=== PATIENT | male | born 1975 | race Caucasian/White ===

== ENCOUNTER 2024-05-04 14:17 | Outpatient (AMB) | payer OTHER, SELFPAY ==
--- NOTE | 2024-05-04 14:24 | MHC.PC.OV ---
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 Is taking medication for blood pressure, unable to understand interpretation on what the name of the medication is. 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 He moved here from [facility] and this is the first time he has been seen since being in the . He states he has a hx of heart problems and kidney disease . He has htn and kidney cysts. [facility] phone pecan sheller used today. CV: He was on a 10 mg blood pressure drug he does not know the name of. He does not think he has ever had cholesterol issues. He has never had a heart attack or stroke to his knowledge. He denies ever having a stress test. Uro: He states that the cysts are small and he is not sure if it is ever caused any kidney damage. Denies any urinary symptoms. He denies any significant family history. No known heart disease or malignancies. He has never had a colonoscopy. [facility] Family History (Updated 05/04/24 @ 14:37 by Diann Jauregui CMA) Mother Diabetes Social History Housing: House Patient Tobacco Use Status: Former Tobacco user Cigarette Packs Per Day: 1 Years Smoked: 1.5 e-Cigarette/Vaping Use: Never Used Second Hand Smoke Exposure: No service: Yes Current occupational status: employed and unemployed Cognitive needs: No Hearing needs: Yes (difficutly hearing) Vision needs: No Questionnaire PHQ-9 Over the last 2 weeks, how often have you been bothered by any of the following problems? 1. Little interest or pleasure in doing things: not at all 3. Trouble falling or staying asleep, or sleeping too much: not at all 4. Feeling tired or having little energy: nearly every day 5. Poor appetite or overeating: not at all 6. Feeling bad about yourself - or that you are a failure or have let yourself or your family down: not at all 7. Trouble concentrating on things, such as reading the newspaper or watching television: not at all 8. Moving or speaking so slowly that other people could have noticed. Or the opposite - being so fidgety or restless that you have been moving around a lot more than usual: not at all 9. Thoughts that you would be better off or of hurting yourself in some way: not at all Depression Screening Interpretation: Negative Depression Screening Done: Yes 12951 - PHQ-9 Billing: Yes Source: Developed by Drs. Len Aguilera, Gina Perera, Gatito Guerrero and colleagues, with an educational fatou from [employer]. Thrive Questionnaire Date Thrive assessed: 05/02/24 I am a: Patient What is your living situation today?: I have a steady place to live Within the past 12 months, did the food you bought not last and you didn't have the money to get more?: Never true Within the past 12 months, did you worry whether your food would run out before you got money to buy more?: Never true Do you have trouble paying for medicines?: No Do you have trouble getting transportation to medical appointments?: No Do you have trouble paying your heating and electricity bill?: No Do you have trouble taking care of your child, family member or friend?: No Do you have trouble with day-to-day activities such as bathing, preparing meals, shopping, managing finances, etc.?: No Are you currently unemployed and looking for a job?: Yes Are you interested in more education?: Yes Please select the resources that you would like help with: None Currently or been in a relationship where the following occur: No concerns reported THRIVE Score: 0 AUDIT C Alcohol Use Questionnaire (AUDIT-C) 1. How often do you have a drink containing alcohol?: 2-4 times a month 2. How many drinks containing alcohol do you have on a typical day when you are drinking?: 1 or 2 3. How often do you have six or more drinks on one occasion?: Less than monthly Total Score: 3 ARTI-7 AMB Questionnaire ARTI-7 Feeling nervous, anxious, or on edge: 0 = Not at all Not being able to stop or control worryin = Not at all Worrying too much about different things: 0 = Not at all Trouble relaxin = Not at all Being so restless that it is hard to sit still: 0 = Not at all Becoming easily annoyed or irritable: 0 = Not at all Feeling afraid as if something awful might happen: 0 = Not at all Total ARTI-7 score (0-4 normal; 5-9 mild; 10-14 moderate; 15-21 severe): 0 Source: Developed by Drs. Len Aguilera, Gina Perera, Gatito Guerrero and colleagues, with an educational fatou from [employer]. ARTI-7 Assessment Billing ARTI-7 Assessment Tool: ARTI-7 Assessment 01573 Physical exam (Primary Care) Depression Screening Interpretation: Negative Thrive Assessment: Date of Thrive Assessment Date Thrive assessed 05/02/24 05/02/24 08:26 Currently or been in a relationship where the following occur: No concerns reported Const Orientation/consciousness: patient oriented x3 HENMT Ears: hearing grossly normal bilaterally Neck Thyroid: Thyroid normal Lymphatic: no lymphadenopathy noted Resp Auscultation: clear to auscultation bilaterally Cardio Rate: regular rate Rhythm: regular rhythm Heart sounds: S1 normal heart sound present and S2 normal heart sound present GI Inspection: Yes normal to inspection Palpation (GI): Soft to palpation and Other GI palpation findings present (nontender, no cva tenderness) Auscultation: normoactive bowel sounds Rectal Exam - Male: Yes deferred Skin General skin exam: no rashes or lesions noted Neuro General: patient oriented x3, gait normal and no focal motor deficits Office Procedures EKG Details: EKG today in office is normal sinus rhythm. EKG interpreted by myself and Dr. Cohen [id number], Complete Coding Level of Care Code New Pt Level 4 (60302) Complex EM visit Add On G2211 Diagnoses Primary hypertension I10 Hypertension type: primary hypertension Renal cyst N28.1 CPT Codes EKG - CPT: 08966-[id number], Complete ([id number]) Additional Codes PHQ-9 - 89507 - PHQ-9 Billing: Yes ([id number]) ARTI-7 Assessment Billing - ARTI-7 Assessment Tool: ARTI-7 Assessment 82334 ([id number]) Assessment & Plan Assessment & Plan (1) Hypertension: Code(s): I10 - Essential (primary) hypertension Category: Medical Qualifiers: Hypertension type: primary hypertension Qualified Code(s): I10 - Essential (primary) hypertension Plan: We will start lisinopril 10 mg. We discussed risks and benefits and adverse effects of this medication. Labs ordered today. We will follow up pending test results. EKG today in office (2) Renal cyst: Code(s): N28.1 - Cyst of kidney, acquired Category: Medical Plan: Renal ultrasound ordered. Labs ordered. Plan Colonoscopy ordered Labs ordered including CBC, CMP, lipid, TSH, UA and PSA. Orders: Orders Complete Blood Count Auto Diff Today I10 - Essential (primary) hypertension, N28.1 - Cyst of kidney, acquired AMB EKG-In Office Today I10 - Essential (primary) hypertension, N28.1 - Cyst of kidney, acquired, Z13.6 - Encounter for screening for cardiovascular disorders US renal BI Today I10 - Essential (primary) hypertension, N28.1 - Cyst of kidney, acquired, Z13.6 - Encounter for screening for cardiovascular disorders Comprehensive Homeland. Panel Fast Today I10 - Essential (primary) hypertension, N28.1 - Cyst of kidney, acquired Lipid Panel Today I10 - Essential (primary) hypertension, N28.1 - Cyst of kidney, acquired TSH reflex Free T4 Today I10 - Essential (primary) hypertension, N28.1 - Cyst of kidney, acquired UA CC w/rflx Micro + Cult Today I10 - Essential (primary) hypertension, N28.1 - Cyst of kidney, acquired, Z13.220 - Encounter for screening for lipoid disorders Prostate Specific Antigen Scr Today Z01.89 - Encounter for other specified special examinations Referrals Open Access Screening Colonoscopy Referral Z12.11 - Encounter for screening for malignant neoplasm of colon Medications: New lisinopril 10 mg PO DAILY 90 tabs 1RF
[2024-05-04 14:42] VITALS: BP 126/88; PULSE 85; O2SAT 97; BMI 29.6
== END 2024-05-04 15:14 | disposition home or self-care (01) ==
PROVIDERS: Visit Provider Physician Assistant
DX: I10 Essential (primary) hypertension (principal); N28.1 Cyst of kidney, acquired

== ENCOUNTER → 2024-05-04 14:17 | Outpatient (BNVA) | payer OTHER, SELFPAY | PROVIDERS: Visit Provider Physician Assistant | DX: I10 Essential (primary) hypertension (principal); N28.1 Cyst of kidney, acquired | CPT/HCPCS: 93005; 96127; 99202 ==

== ENCOUNTER 2024-05-09 10:08 | Outpatient (REF) | payer OTHER, SELFPAY ==
[2024-05-09 14:24] LABS: MANUAL DIFF FLAG NO
[2024-05-09 14:28] LABS: Appearance Urine Clear; Color Urine Yellow; Glucose Urine UA Negative (Negative); Leukocyte Esterase Urine Negative (Negative); Nitrite Urine Negative (Negative); PH 5.5 (5.0-9.0); Urine Blood Negative (Negative); Urine Ketones Negative (Negative); Urine Protein Negative (Neg-Trace)
[2024-05-09 14:40] LABS: Basophils Absolute Auto 0.1 X10*3/uL (0.0-0.2); Eosinophils Absolute Auto 0.1 X10*3/uL (0.0-0.4); Eosinophils Percent Auto 1.7 % (0-4); Hematocrit 44.5 % (42.0-52.0); Hemoglobin 14.8 g/dl (14.0-18.0); Imm Gran Abs Auto 0.02 X10*3/uL (0.00-0.03); Imm Gran Pct Auto 0.3 % (0.0-0.4); Lymphocytes Absolute Auto 2.6 X10*3/uL (1.2-4.9); Lymphocytes Percent Auto 43.9 % (20-40); Mean Corpuscular HGB Conc 33.3 g/dl (31.0-36.0); Mean Corpuscular Hemoglobin 28.6 pg (27.0-33.0); Mean Corpuscular Volume 86.1 fL (80.0-98.0); Mean Platelet Volume 10.2 fL (9.4-12.4); Monocytes Absolute Auto 0.5 X10*3/uL (0.1-1.2); Monocytes Percent Auto 8.2 % (2-11); Neutrophils Absolute Auto 2.7 x10*3/uL (2.0-8.3); Neutrophils Percent Auto 44.9 % (45-73); Platelet Count 259 X10*3/uL (160-400); Red Blood Count 5.17 X10*6/uL (4.60-5.80); Red Cell Distribution Width 13.6 % (11.0-16.0)
[2024-05-09 15:35] LABS: Prostate Specific Antigen Scr 0.31 ng/mL (<0.05-4.0)
[2024-05-09 15:59] LABS: Alanine Aminotransferase 54 U/L (0-40); Albumin Level 4.4 g/dL (3.5-5.0); Anion Gap 13 (12-20); Aspartate Amino Transferase 31 U/L (5-37); Bilirubin Total 0.5 mg/dL (0.0-1.0); Blood Urea Nitrogen 18 mg/dL (9-16); Calcium 9.7 mg/dL (8.4-10.2); Carbon Dioxide 25 mmol/L (22-29); Chloride 105 mmol/L (96-108); Cholesterol 228 mg/dL (<200); Estimated Glomerular Filt Rate > 60; Glucose Fasting 89 mg/dL (60-99); HDL Cholesterol 42 mg/dL (>40); LDL Cholesterol Calculated 145 mg/dL (<100); Sodium 139 mmol/L (135-145); Total Protein 7.3 g/dL (6.5-8.0); Triglycerides 206 mg/dL (<150)
[2024-05-09 16:26] LABS: TSH reflex Free T4 1.28 uIU/mL (0.32-4.0)
[2024-05-09 17:27] LABS: Alkaline Phosphatase 57 U/L (39-117)
== END 2024-05-09 10:09 | disposition home or self-care (01) ==
LOC: HO.WFDLDS 10:08
PROVIDERS: Visit Provider Physician Assistant
DX: I10 Essential (primary) hypertension (principal); N28.1 Cyst of kidney, acquired; Z13.220 Encounter for screening for lipoid disorders; Z01.89 Encounter for other specified special examinations
CPT/HCPCS: 36415; 80053; 80061; 81003; 84153; 84443; 85025

== ENCOUNTER 2024-05-12 13:52 | Outpatient (REF) | payer OTHER, SELFPAY | END 2024-05-12 13:53 | disposition home or self-care (01) | LOC: HO.US 13:52 | PROVIDERS: PCP Physician Assistant; Visit Provider Physician Assistant | DX: N28.1 Cyst of kidney, acquired (principal); I10 Essential (primary) hypertension | CPT/HCPCS: 76775 ==

== ENCOUNTER 2024-05-26 10:15 | Outpatient (REF) | payer OTHER, SELFPAY ==
--- NOTE | ~2024-05-26 | US_ITS ---
EXAMINATION: US ABDOMEN COMPLETE CLINICAL INFORMATION: Abnormal results of liver function studies. COMPARISON: Renal ultrasound 05/12/2024. TECHNIQUE: Real-time imaging of the abdominal viscera. FINDINGS: PANCREAS: The visualized portion of the pancreas head and body are normal, portion of the pancreatic body and tail, not visualized are obscured by bowel gas. ABDOMINAL AORTA: The proximal, mid, and distal segments are normal in caliber. INFERIOR VENA CAVA: Visualized portions are normal. LIVER: The liver is normal in size. The liver contour is normal. Increased echogenicity of the liver parenchyma, this can be seen in the setting of hepatic steatosis or liver parenchymal disease. No focal hepatic lesion. There is no intrahepatic biliary duct dilatation seen. GALLBLADDER: There is a gallstone 4 mm. The gallbladder is physiologically distended without evidence of sludge, wall thickening or pericholecystic fluid. No evidence of cholecystitis. COMMON BILE DUCT: Normal in caliber measuring 0.4 cm in diameter. RIGHT KIDNEY: No hydronephrosis. No renal calculi or focal parenchymal lesions. The kidney measures 11.0 cm in maximum dimension. LEFT KIDNEY: No hydronephrosis or renal calculi. The kidney measures 11.8 cm in maximum dimension. Cyst protruding from the left kidney 1.5 cm. These are commonly benign, no follow-up imaging is indicated. SPLEEN: The spleen measures 9.6 cm in maximum dimension. FREE FLUID: None. US/US abdomen complete IMPRESSION: 1. Increased echogenicity of the liver parenchyma, this can be seen in the setting of hepatic steatosis or liver parenchymal disease. 2. Cholelithiasis without ultrasound evidence of acute cholecystitis. 3. Left renal cyst 1.5 cm. Electronically signed by: Humberto Flores MD 06/11/2024 01:11 PM [facility]
== END 2024-05-26 10:16 | disposition home or self-care (01) ==
LOC: HO.US 10:15
PROVIDERS: PCP Physician Assistant; Visit Provider Physician Assistant
DX: R94.5 Abnormal results of liver function studies (principal)
CPT/HCPCS: 76700

== ENCOUNTER 2024-06-01 09:21 | Outpatient (AMB) | payer OTHER, SELFPAY ==
--- NOTE | 2024-06-01 09:31 | MHC.PC.OV ---
Vital Signs 06/01/24 09:35 06/01/24 09:42 Height 5 ft 10.35 in Weight 212 lb BMI 30.1 BP 148/94 H 134/90 H Blood Pressure Location Rt brachial Rt brachial Position Sitting Sitting Pulse 94 Pulse Source Pulse Oximeter Pulse Oximetry (%) 95 Oxygen Delivery Method Room Air Intake Visit Reasons: htn (malawian interp needed) Intake Note: Follow up htn. Was at ER 06/08/24 Clerical Coordinator Required: Yes Clerical Coordinator Language: Uzbek Clerical Coordinator Name: Lenard [id number] Allergies No Known Allergies Allergy (Verified 06/01/24 09:33) Medication List - Last Reconciled 06/01/24 by Dulce Mcdonough PA-C Tobacco use date assessed: 05/04/24 Dental Screening Dental Screen Date: 05/04/24 HPI htn (malawian interp needed) HPI Details Patient is a 48-year-old male who presents today for a follow up. He moved here from [facility] and this is the first time he has been seen since being in the . He has htn, dyslipidemia and kidney cysts. 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 [place] [facility] [place] after he fell at home and landed on his chest on 05/25/24. He states he fell while working [employer] [place] the ice. He landed on a set of stairs CV: He was started on lisinopril 10 mg. His bp today is 134/90. This is similar to his log he brought in. Uro: He states that the cysts are small and he is not sure if it is ever caused any kidney damage. Denies any urinary symptoms. U/s was done but results are not back yet. He denies any significant family history. No known heart disease or malignancies. He has never had a colonoscopy. He was referred at our last visit. [facility] Family History (Updated 05/04/24 @ 14:38 by Diann Jauregui CMA) Mother Diabetes Social History Housing: House Patient Tobacco Use Status: Former Tobacco user Cigarette Packs Per Day: 1 Years Smoked: 1.5 e-Cigarette/Vaping Use: Never Used Second Hand Smoke Exposure: No service: Yes Current occupational status: employed and unemployed Cognitive needs: No Hearing needs: Yes (difficutly hearing) Vision needs: No Questionnaire PHQ-9 Over the last 2 weeks, how often have you been bothered by any of the following problems? 2. Feeling down, depressed, or hopeless: not at all Source: Developed by Drs. Len Aguilera, Gina Perera, Gatito Guerrero and colleagues, with an educational fatou from [employer]. Thrive Questionnaire Date Thrive assessed: 05/02/24 I am a: Patient What is your living situation today?: I have a steady place to live Within the past 12 months, did the food you bought not last and you didn't have the money to get more?: Never true Within the past 12 months, did you worry whether your food would run out before you got money to buy more?: Never true Do you have trouble paying for medicines?: No Do you have trouble getting transportation to medical appointments?: No Do you have trouble paying your heating and electricity bill?: No Do you have trouble taking care of your child, family member or friend?: No Do you have trouble with day-to-day activities such as bathing, preparing meals, shopping, managing finances, etc.?: No Are you currently unemployed and looking for a job?: Yes Are you interested in more education?: Yes Please select the resources that you would like help with: None Currently or been in a relationship where the following occur: No concerns reported THRIVE Score: 0 Physical exam (Primary Care) Vital Signs: Last Vital Signs Pulse 94 06/01/24 09:35 BP 134/90 H 06/01/24 09:42 Pulse Ox 95 06/01/24 09:35 Oxygen Delivery Method Room Air 06/01/24 09:35 BMI result Body Mass Index 30.1 Tobacco/Smoking Status: Tobacco use Status Tobacco use date assessed 05/04/24 06/01/24 09:34 Patient Tobacco Use Status Former Tobacco user 06/01/24 09:34 e-Cigarette/Vaping Use Never Used 06/01/24 09:34 Thrive Assessment: Date of Thrive Assessment Date Thrive assessed 05/02/24 06/01/24 09:34 Currently or been in a relationship where the following occur: No concerns reported Const Orientation/consciousness: patient oriented x3 HENMT Ears: hearing grossly normal bilaterally Neck Thyroid: Thyroid normal Lymphatic: no lymphadenopathy noted Resp Auscultation: clear to auscultation bilaterally Cardio Rate: regular rate Rhythm: regular rhythm Heart sounds: S1 normal heart sound present and S2 normal heart sound present GI Inspection: Yes normal to inspection Palpation (GI): Soft to palpation and Other GI palpation findings present (nontender, no cva tenderness) Auscultation: normoactive bowel sounds Rectal Exam - Male: Yes deferred Skin General skin exam: no rashes or lesions noted Neuro General: patient oriented x3, gait normal and no focal motor deficits Results Reviewed Results Reviewed: Laboratory Tests 05/09/24 10:10 WBC 6.0 RBC 5.17 Hgb 14.8 Hct 44.5 Plt Count 259 Sodium 139 Potassium 4.0 Chloride 105 Estimated GFR > 60 Fasting Glucose 89 Triglycerides 206 H Cholesterol 228 H LDL Cholesterol, Calc 145 H HDL Cholesterol 42 PSA Screen 0.31 TSH 1.28 Coding Level of Care Code Est Pt Level 4 (84736) Complex EM visit Add On G2211 Diagnoses Primary hypertension I10 Hypertension type: primary hypertension Elevated LFTs R79.89 Dyslipidemia E78.5 Assessment & Plan Assessment & Plan (1) Hypertension: Code(s): I10 - Essential (primary) hypertension Category: Medical Qualifiers: Hypertension type: primary hypertension Qualified Code(s): I10 - Essential (primary) hypertension Plan: I will increase his lisinopril to 20 mg. Appears to be tolerating this well. (2) Elevated LFTs: Code(s): R79.89 - Other specified abnormal findings of blood chemistry Category: Medical Plan: Repeat labs have been ordered. He is going to complete these today. We will follow up pending test results. He did do an abdominal ultrasound but the results are not back yet. (3) Dyslipidemia: Code(s): E78.5 - Hyperlipidemia, unspecified Category: Medical Plan: He would like to start a low-fat diet and does not want to start medication. Orders: Orders Lipid Panel 3 Months E78.5 - Hyperlipidemia, unspecified Medications: New lisinopril 20 mg PO DAILY 90 tabs 1RF
[2024-06-01 09:35] VITALS: BP 148/94; PULSE 94; O2SAT 95; BMI 30.1
[2024-06-01 09:42] VITALS: BP 134/90
== END 2024-06-01 10:26 | disposition home or self-care (01) ==
PROVIDERS: PCP Physician Assistant; Visit Provider Physician Assistant
DX: I10 Essential (primary) hypertension (principal); R79.89 Other specified abnormal findings of blood chemistry; E78.5 Hyperlipidemia, unspecified

== ENCOUNTER → 2024-06-01 09:21 | Outpatient (BNVA) | payer OTHER, SELFPAY | PROVIDERS: Visit Provider Physician Assistant | DX: I10 Essential (primary) hypertension (principal); R79.89 Other specified abnormal findings of blood chemistry; E78.5 Hyperlipidemia, unspecified | CPT/HCPCS: 99212 ==

== ENCOUNTER 2024-06-01 10:40 | Outpatient (REF) | payer OTHER, SELFPAY ==
[2024-06-01 14:40] LABS: Alanine Aminotransferase 48 U/L (0-40); Albumin Level 4.5 g/dL (3.5-5.0); Alkaline Phosphatase 64 U/L (39-117); Aspartate Amino Transferase 25 U/L (5-37); Bilirubin Direct < 0.2 mg/dL (0.0-0.5); Bilirubin Total 0.2 mg/dL (0.0-1.0); Iron 84 mcg/dL (45-160); Percent Iron Saturation 26 % (15-50); Total Iron Binding Capacity 322 mcg/dL (228-428); Total Protein 7.8 g/dL (6.5-8.0); Unsaturated Iron Binding 238 ug/dL
[2024-06-01 14:58] LABS: Gamma Glutamyl Transpeptidase 31 U/L (11-51)
[2024-06-01 15:10] LABS: Ferritin 124 ng/mL (20-250)
[2024-06-02 09:14] LABS: Hepatitis A Antibody IgG Nonreactive (Nonreactive); ~Hepatitis A Antibody IgG 0.26 S/CO (0.00-0.99)
[2024-06-02 09:31] LABS: Hepatitis B Surface Antigen Negative (Negative); ~HepC Num1 0.09 S/CO (0.00-0.79); ~Hepatitis B Surface Antibody NONREACTIVE (Nonreactive); ~Hepatitis C Antibody Nonreactive (Nonreactive)
== END 2024-06-01 10:41 | disposition home or self-care (01) ==
LOC: HO.WFDLDS 10:40
PROVIDERS: Visit Provider Physician Assistant
DX: R94.5 Abnormal results of liver function studies (principal)
CPT/HCPCS: 36415; 80076; 82728; 82977; 83540; 86706; 86708; 86803; 87340

== ENCOUNTER 2024-08-25 14:01 | Outpatient (REF) | payer OTHER, SELFPAY ==
[2024-08-25 16:23] LABS: Prothrombin Time 11.5 SEC (10.9-12.4)
--- OUTSIDE RECORDS SUMMARY | 2024-08-25 16:57 | XMS_ITS | Clinical Summary ---
Author Organization [facility] Address [address] [place] [address] Care Team Providers Care Poultry Sexer Name Role Phone Unavailable Primary Care Provider [...] 2021 Fecal DNA 2021 Flexible Sigmoidoscopy 2021 [id number] ( season) 2024 Imm-Influenza (#1) 2024 Alcohol and Drug Screen 06/21/2024 Depression Annual Screen 06/21/2024
[2024-08-26 08:22] LABS: HIV AB/AG Nonreactive (Nonreactive); HIV Num 1 0.06 S/CO (0.00-0.99)
[2024-08-26 17:23] LABS: Immunoglobulin A 302 mg/dL (47-310); Immunoglobulin G 1282 mg/dL (600-1640)
[2024-08-26 19:19] LABS: Alpha 1 Anti-trypsin 113 mg/dL (83-199); Ceruloplasmin 20 mg/dL (14-30)
[2024-08-28 12:13] LABS: Alpha Fetoprotein 3.1 ng/mL (<6.1)
[2024-08-28 19:04] LABS: Transglutaminase IgA <1.0 U/mL
[2024-08-29 12:24] LABS: Mitochondrial Antibodies NEGATIVE (NEGATIVE)
[2024-08-29 22:42] LABS: Smooth Muscle Antibody <20 U (<20)
[2024-08-30 09:28] LABS: Anti Nuclear Antibody Screen NEGATIVE (NEGATIVE)
[2024-08-30 11:39] LABS: Liver Kidney Microsomal Ab <=20.0 U (<=20.0)
[2024-09-05 11:03] LABS: Phosphatidylethanol 16:0-18:1 26; Phosphatidylethanol 16:0-18:2 NEGATIVE
== END 2024-08-25 14:02 | disposition home or self-care (01) ==
LOC: HO.LAB 14:01
PROVIDERS: PCP Physician Assistant; Visit Provider Internal Medicine
DX: K76.0 Fatty (change of) liver, not elsewhere classified (principal); R79.89 Other specified abnormal findings of blood chemistry; E78.5 Hyperlipidemia, unspecified
CPT/HCPCS: 36415; 80321; 82103; 82105; 82390; 82784; 85610; 86015; 86038; 86364; 86376; 86381; 87389; 99202

== ENCOUNTER 2024-08-25 14:01 | Outpatient (AMB) | payer OTHER, SELFPAY ==
--- NOTE | 2024-08-25 14:02 | MHC.OFFVIS ---
Vital Signs 08/25/24 14:03 Height 5 ft 10.4 in Weight 200 lb 9.93 oz BMI 28.5 BP 138/90 H Blood Pressure Location Lt brachial Position Sitting Pulse 76 Intake Visit Reasons: Elevated LFT, Fatty Liver Intake Note: Gomez presents in the office as a new patient for Fatty Liver and Elevated LFT. CC: He states that he is feeling okay and denies any GI concerns. Gypsum Block Setter Required: Yes Gypsum Block Setter Name: [id number] Liliana Allergies No Known Allergies Allergy (Verified 08/25/24 14:12) HPI Comments Details: 48 y.o [place] Viky who is here for elevated LFTs. Seen with online radiation oncologist. Pt reports no abd pain, N,V, D. No abd distention, pruritus, joint pains reported. Drinks etOH rarely 2-3 times a year. No fam hx of liver disease. Had routine labs done through PCP which showed mildly elevated ALT <x2UNL. US Abd done that shows steatosis. Also shows GB stone. Hep sero negative. Iron studies normal. Laboratory Tests 05/09/24 06/01/24 06/01/24 10:10 10:11 10:41 Hgb 14.8 Hct 44.5 Plt Count 259 BUN 18 H Creatinine 0.82 Fasting Glucose 89 Ferritin 124 GGT 31 AST 25 ALT 48 H Triglycerides 206 H Cholesterol 228 H LDL Cholesterol, Calc 145 H HDL Cholesterol 42 Hepatitis A IgG Ab Nonreactive Hep Bs Antigen Negative Hep Bs Antibody NONREACTIVE Hepatitis C Ab (EIA) Nonreactive US Abd 1. Increased echogenicity of the liver parenchyma, this can be seen in the setting of hepatic steatosis or liver parenchymal disease. 2. Cholelithiasis without ultrasound evidence of acute cholecystitis. 3. Left renal cyst 1.5 cm PFSH Family History Mother Diabetes Social History Housing: House Patient Tobacco Use Status: Former Tobacco user Cigarette Packs Per Day: 1 Years Smoked: 1.5 e-Cigarette/Vaping Use: Never Used Second Hand Smoke Exposure: No service: Yes Current occupational status: employed and unemployed Cognitive needs: No Hearing needs: Yes (difficutly hearing) Vision needs: No Review of Systems Const All systems reviewed & are unremarkable except as noted in HPI and below Physical Exam Vital Signs: Last Vital Signs Pulse 76 08/25/24 14:03 BP 138/90 H 08/25/24 14:03 BMI result Body Mass Index 28.5 Gen Appear: NAD, well nourished HEENT: No scleral icterus, no bitemporal wasting noted Chest: CTA Abd: soft, nontender, nondistended, no shifting dullness to percussion Ext: No peripheral edema bilaterally Neuro: A/Ox3, no asterixis Derm: No spider angioma and palmar erythema noted Assessment & Plan Assessment & Plan (1) Elevated LFTs: Code(s): R79.89 - Other specified abnormal findings of blood chemistry Category: Medical (2) Fatty liver: Code(s): K76.0 - Fatty (change of) liver, not elsewhere classified Category: Medical (3) Dyslipidemia: Code(s): E78.5 - Hyperlipidemia, unspecified Category: Medical Plan Ddx include MAFLD/CONTEH vs other causes such as AIH, wilsons, celiac, etc. Reviewed that labs do not suggest advanced fibrosis at this time. Fib 4 0.65 Plan: - Labs ordered for chronic liver dz work up - Start atorvastatin 20 mg once daily for HLD - Moderate intensity exercise of at least 150 minutes per week recommended Follow up 3 months Orders: Orders Alpha 1 Anti-trypsin Today K76.0 - Fatty (change of) liver, not elsewhere classified, R79.89 - Other specified abnormal findings of blood chemistry MOOK Reflex Titer and Pattern Today K76.0 - Fatty (change of) liver, not elsewhere classified, R79.89 - Other specified abnormal findings of blood chemistry Ceruloplasmin Today K76.0 - Fatty (change of) liver, not elsewhere classified, R79.89 - Other specified abnormal findings of blood chemistry HIV Ab/Ag Today K76.0 - Fatty (change of) liver, not elsewhere classified, R79.89 - Other specified abnormal findings of blood chemistry Immunoglobulin G Today K76.0 - Fatty (change of) liver, not elsewhere classified, R79.89 - Other specified abnormal findings of blood chemistry Prothrombin Time INR Today K76.0 - Fatty (change of) liver, not elsewhere classified, R79.89 - Other specified abnormal findings of blood chemistry Alpha Fetoprotein Today K76.0 - Fatty (change of) liver, not elsewhere classified, R79.89 - Other specified abnormal findings of blood chemistry Immunoglobulin A Today K76.0 - Fatty (change of) liver, not elsewhere classified, R79.89 - Other specified abnormal findings of blood chemistry Transglutaminase IgA Today K76.0 - Fatty (change of) liver, not elsewhere classified, R79.89 - Other specified abnormal findings of blood chemistry Liver Kidney Microsomal Ab Today K76.0 - Fatty (change of) liver, not elsewhere classified, R79.89 - Other specified abnormal findings of blood chemistry Mitochondrial Antibody Today K76.0 - Fatty (change of) liver, not elsewhere classified, R79.89 - Other specified abnormal findings of blood chemistry Phosphatidylethanol, Blood Today K76.0 - Fatty (change of) liver, not elsewhere classified, R79.89 - Other specified abnormal findings of blood chemistry Smooth Muscle Antibody Today K76.0 - Fatty (change of) liver, not elsewhere classified, R79.89 - Other specified abnormal findings of blood chemistry Liver Panel 3 Months K76.0 - Fatty (change of) liver, not elsewhere classified, R79.89 - Other specified abnormal findings of blood chemistry Lipid Panel 3 Months E78.5 - Hyperlipidemia, unspecified Medications: New atorvastatin 20 mg PO BEDTIME 90 tabs 3RF Coding Level of Care Code New Pt Level 4 (05252) Diagnoses Elevated LFTs Fatty liver K76.0 Dyslipidemia E78.5
[2024-08-25 14:03] VITALS: BP 138/90; PULSE 76; BMI 28.5
--- OUTSIDE RECORDS SUMMARY | 2024-08-25 15:42 | XMS_ITS | Clinical Summary ---
Author Organization [facility] Address [address] [place] [address] Care Team Providers Care Embedded Developer Name Role Phone Unavailable Primary Care Provider Unavailabl e Source Comments PLEASE NOTE, if this patient is a minor, it may be UNLAWFUL to discuss sensitive information that is contained in these records (such as FAMILY PLANNING, MENTAL HEALTH or SUBSTANCE ABUSE) with the minor patient's parent or other person without the patient's specific authorization.[facility] Social History Tobacco Use Types Packs/Day Years Used Date Smoking Tobacco: Never Assessed Social Connections Answer Date Recorded Connectedness 0 03/04/2024 Financial Resource Strain Answer Date R ecorded Financial Resource Strain 0 2023 Stress Answer Date Recorded Stress 0 02/24/2024 Physical Activity Answer Date Recorded Physical Activity 0 02/24/2024 Food Insecurity Answer Date Recorded Food 0 03/16/2024 Transportation Needs Answer Date Record ed Transportation 0 02/24/2024 Housing Stability Answer Date Recorded Housing 0 02/24/2024 Safety and Environment Answer Date Dany rded Safety 0 02/24/2024 Utilities Answer Date Recorded Utilities 0 02/24/2024 Employment Answer Date Recorded Stress 0 03/04/2024 Sex and Gender Information Value Date Recorded Sex Assigned at Not on file Legal Sex Male 1:35 PM PDT Gender Identity Not on file Sexual Orientation Not on file Plan of Treatment Health Maintenance Due Date Last Done Comments Diabetes Screening 1975 Hepatitis C Screening 1975 Lipid Screening 1975 Tobacco Screening 1975 HIV Screening 11/02/1991 Annual Preventive Care Visit 1994 Hypertension Screening (#1) 1994 Imm-DTaP/Tdap/Td (1 - Tdap) 11/02/1995 Imm-Hepatitis B (1 of 3 - 19+ 3-dose series) 6 CT Colonography 2021 Colonoscopy 2021 Colorectal Cancer Screening 2021 FIT/gFOBT 2021 Fecal DNA 2021 Flexible Sigmoidoscopy 2021 [id number] ( season) 2024 Imm-Influenza (#1) 2024 Alcohol and Drug Screen 06/21/2024 Depression Annual Screen 06/21/2024
== END 2024-08-25 15:10 | disposition home or self-care (01) ==
PROVIDERS: PCP Physician Assistant; Visit Provider Internal Medicine
DX: R79.89 Other specified abnormal findings of blood chemistry (principal); K76.0 Fatty (change of) liver, not elsewhere classified; E78.5 Hyperlipidemia, unspecified
CPT/HCPCS: 99204

== ENCOUNTER 2024-09-13 14:35 | Outpatient (AMB) | payer OTHER, SELFPAY ==
--- NOTE | 2024-09-13 14:54 | MHC.PC.OV ---
Vital Signs 09/13/24 15:03 Height 5 ft 10 in Weight 202 lb BMI 29.0 BP 132/84 Blood Pressure Location Lt brachial Position Sitting Respiration 12 Pulse 74 Pulse Source Pulse Oximeter Pulse Oximetry (%) 98 Oxygen Delivery Method Room Air Intake Visit Reasons: bp needs 30 min Intake Note: Blood pressure follow up. Atorvastatin caused mouth rash and gum bleeding. Stopped taking 10 days ago. Symptoms resolved 2 days after stopping medication. Dye House Supervisor Required: Yes Dye House Supervisor Language: Citizen Of [place] Dye House Supervisor Name: [id number] Lenard Allergies atorvastatin Adverse Reaction (Unknown, Verified 09/13/24 14:59) rash on tongue Medication List - Last Reconciled 09/13/24 by Dulce Mcdonough PA-C lisinopril 20 mg PO DAILY Tobacco use date assessed: 09/13/24 Dental Screening Dental Screen Date: 05/04/24 HPI bp needs 30 min HPI Details Patient is a 48-year-old male who presents today for a follow up. He has htn, dyslipidemia and kidney cysts. Citizen Of [place] phone wool cleaner, Lenard, used today. CV: He was started on lisinopril 20 mg. His bp today is 132/84. He tells me today that he is getting intermittent shortness a breath with exertion. He states that when he lifts things feels winded. When he stops and rests it has improved. Sometimes he gets chest pain but not always with exertion. Sometimes he has a chest pain if he lays on his side. He denies any GERD, palpitations, dizziness, lower leg swelling. Denies any wheezing or coughing. Uro: Following with Urology for renal cysts. GI: He has never had a colonoscopy. He was referred at our last visit for the elevated LFTs and fatty liver. He was started on atorvastatin but states that he did not tolerate this. He felt like it irritated his tongue in caused his gums to bleed easily. He states when he stopped the medication it improved/resolved. He did not have any swelling of the face, tongue, lips or throat. He did not have any itching or rashes. Order [facility] Family History Mother Diabetes Social History (Updated 09/13/24 @ 15:04 by Diann Jauregui CMA) Housing: House Alcohol intake: current Patient Tobacco Use Status: Former Tobacco user Cigarette Packs Per Day: 1 Years Smoked: 1.5 e-Cigarette/Vaping Use: Never Used Second Hand Smoke Exposure: No service: Yes Current occupational status: employed and unemployed Cognitive needs: No Hearing needs: Yes (difficutly hearing) Vision needs: No Questionnaire PHQ-9 Over the last 2 weeks, how often have you been bothered by any of the following problems? 1. Little interest or pleasure in doing things: not at all 2. Feeling down, depressed, or hopeless: not at all 3. Trouble falling or staying asleep, or sleeping too much: not at all 4. Feeling tired or having little energy: not at all 5. Poor appetite or overeating: not at all 6. Feeling bad about yourself - or that you are a failure or have let yourself or your family down: not at all 7. Trouble concentrating on things, such as reading the newspaper or watching television: not at all 8. Moving or speaking so slowly that other people could have noticed. Or the opposite - being so fidgety or restless that you have been moving around a lot more than usual: not at all 9. Thoughts that you would be better off or of hurting yourself in some way: not at all Total score: 0 Depression Screening Interpretation: Negative Depression Screening Done: Yes 96337 - PHQ-9 Billing: Yes Source: Developed by Drs. Len Aguilera, Gina Perera, Gatito Guerrero and colleagues, with an educational fatou from [employer]. Thrive Questionnaire Date Thrive assessed: 09/13/24 I am a: Patient What is your living situation today?: I have a steady place to live Within the past 12 months, did the food you bought not last and you didn't have the money to get more?: Never true Within the past 12 months, did you worry whether your food would run out before you got money to buy more?: Never true Do you have trouble paying for medicines?: No Do you have trouble getting transportation to medical appointments?: No Do you have trouble paying your heating and electricity bill?: No Do you have trouble taking care of your child, family member or friend?: No Do you have trouble with day-to-day activities such as bathing, preparing meals, shopping, managing finances, etc.?: No Are you currently unemployed and looking for a job?: No Are you interested in more education?: Yes Please select the resources that you would like help with: Education Currently or been in a relationship where the following occur: No concerns reported THRIVE Score: 0 AUDIT C Alcohol Use Questionnaire (AUDIT-C) 1. How often do you have a drink containing alcohol?: 2-4 times a month 2. How many drinks containing alcohol do you have on a typical day when you are drinking?: 1 or 2 3. How often do you have six or more drinks on one occasion?: Less than monthly Total Score: 3 ARTI-7 AMB Questionnaire ARTI-7 Date ARTI - 7 assessed: 09/13/24 Feeling nervous, anxious, or on edge: 0 = Not at all Not being able to stop or control worryin = Not at all Worrying too much about different things: 0 = Not at all Trouble relaxin = Not at all Being so restless that it is hard to sit still: 0 = Not at all Becoming easily annoyed or irritable: 0 = Not at all Feeling afraid as if something awful might happen: 0 = Not at all Total ARTI-7 score (0-4 normal; 5-9 mild; 10-14 moderate; 15-21 severe): 0 Source: Developed by Drs. Len Aguilera, Gina Perera, Gatito Guerrero and colleagues, with an educational fatou from [employer]. ARTI-7 Assessment Billing ARTI-7 Assessment Tool: ARTI-7 Assessment 78716 Physical exam (Primary Care) Vital Signs: Last Vital Signs Pulse 74 09/13/24 15:03 Resp 12 09/13/24 15:03 BP 132/84 09/13/24 15:03 Pulse Ox 98 09/13/24 15:03 Oxygen Delivery Method Room Air 09/13/24 15:03 BMI result Body Mass Index 29.0 Tobacco/Smoking Status: Tobacco use Status Tobacco use date assessed 09/13/24 09/13/24 15:04 Patient Tobacco Use Status Former Tobacco user 09/13/24 15:04 e-Cigarette/Vaping Use Never Used 09/13/24 15:04 PHQ-9: PHQ-9 Score PHQ-9: Total score 0 09/13/24 15:10 Depression Screening Interpretation: Negative Thrive Assessment: Date of Thrive Assessment Date Thrive assessed 09/13/24 09/13/24 15:04 Currently or been in a relationship where the following occur: No concerns reported Const Orientation/consciousness: patient oriented x3 HENMT Ears: hearing grossly normal bilaterally Neck Thyroid: Thyroid normal Lymphatic: no lymphadenopathy noted Resp Auscultation: clear to auscultation bilaterally Cardio Rate: regular rate Rhythm: regular rhythm Heart sounds: S1 normal heart sound present and S2 normal heart sound present GI Inspection: Yes normal to inspection Palpation (GI): Soft to palpation and Other GI palpation findings present (nontender, no cva tenderness) Auscultation: normoactive bowel sounds Rectal Exam - Male: Yes deferred Skin General skin exam: no rashes or lesions noted Neuro General: patient oriented x3, gait normal and no focal motor deficits Coding Level of Care Code Est Pt Level 4 (08910) Complex EM visit Add On G2211 Diagnoses Primary hypertension I10 Hypertension type: primary hypertension Dyslipidemia E78.5 Chest pain R07.9 AGUILAR (dyspnea on exertion) R06.09 Additional Codes ARTI-7 Assessment Billing - ARTI-7 Assessment Tool: ARTI-7 Assessment 47923 ([id number]) PHQ-9 - 02306 - PHQ-9 Billing: Yes ([id number]) Assessment & Plan Assessment & Plan (1) Hypertension: Code(s): I10 - Essential (primary) hypertension Category: Medical Qualifiers: Hypertension type: primary hypertension Qualified Code(s): I10 - Essential (primary) hypertension Plan: Continue current regimen (2) Dyslipidemia: Code(s): E78.5 - Hyperlipidemia, unspecified Category: Medical Plan: We will try Crestor (3) Chest pain: Code(s): R07.9 - Chest pain, unspecified Category: Medical Plan: Currently asymptomatic. Warning signs of chest pain that would require emergent medical treatment were reviewed. Stress test, echo and chest x-ray ordered. We will follow up pending test results. (4) AGUILAR (dyspnea on exertion): Code(s): R06.09 - Other forms of dyspnea Category: Medical Plan: As above Orders: Orders Complete Blood Count Auto Diff 09/13/24 E78.5 - Hyperlipidemia, unspecified, I10 - Essential (primary) hypertension Comprehensive [place]. Panel Fast 09/13/24 E78.5 - Hyperlipidemia, unspecified, I10 - Essential (primary) hypertension Lipid Panel 09/13/24 E78.5 - Hyperlipidemia, unspecified, I10 - Essential (primary) hypertension CA stress test 09/13/24 R06.09 - Other forms of dyspnea, R07.9 - Chest pain, unspecified CA echo transthoracic complete 09/13/24 R06.09 - Other forms of dyspnea, R07.9 - Chest pain, unspecified XR chest 2V 09/13/24 R06.09 - Other forms of dyspnea, R07.9 - Chest pain, unspecified Medications: New rosuvastatin (Crestor) 5 mg PO DAILY 90 tabs 0RF
[2024-09-13 15:03] VITALS: BP 132/84; PULSE 74; RESP 12; O2SAT 98; BMI 29.0
--- OUTSIDE RECORDS SUMMARY | 2024-09-13 17:31 | XMS_ITS | Clinical Summary ---
Author Organization [facility] Address [address] [place] [address] Care Team Providers Care Script Worker Name Role Phone Unavailable Primary Care Provider [...] 2021 Fecal DNA 2021 Flexible Sigmoidoscopy 2021 [id number] ( season) 2024 Imm-Influenza (#1) 2024 Alcohol and Drug Screen 06/21/2024 Depression Annual Screen 06/21/2024
== END 2024-09-13 15:32 | disposition home or self-care (01) ==
LOC: HO.HMCFM 14:35
PROVIDERS: PCP Physician Assistant; Visit Provider Physician Assistant
DX: I10 Essential (primary) hypertension (principal); E78.5 Hyperlipidemia, unspecified; R07.9 Chest pain, unspecified; R06.09 Other forms of dyspnea

== ENCOUNTER → 2024-09-13 14:35 | Outpatient (BNVA) | payer OTHER, SELFPAY | PROVIDERS: PCP Physician Assistant; Visit Provider Physician Assistant | DX: I10 Essential (primary) hypertension (principal); E78.5 Hyperlipidemia, unspecified; R07.9 Chest pain, unspecified; R06.09 Other forms of dyspnea | CPT/HCPCS: 96127; 99212 ==

== ENCOUNTER → 2024-12-08 08:36 | Outpatient (REF) | payer OTHER, SELFPAY ==
--- OUTSIDE RECORDS SUMMARY | 2024-12-08 08:38 | XMS_ITS | Clinical Summary ---
Author Organization [facility] Address [address] [place] [address] Care Team Providers Care Aluminum Pourer Name Role Phone Unavailable Primary Care Provider [...] Health Maintenance Due Date Last Done Comments Anxiety Screening 1975 Diabetes Screening 1976 Hepatitis C Screening 1976 Lipid Screening 1976 Tobacco Screening 1976 HIV Screening 11/02/1991 Hypertension Screening (#1) 1994 Imm-DTaP/Tdap/Td (1 - Tdap) 11/02/1995 Imm-Hepatitis B (1 of 3 - 19+ 3-dose series) 6 CT Colonography 2021 Colonoscopy 2021 Colorectal Cancer Screening 2021 FIT/gFOBT 2021 Fecal DNA 2021 Flexible Sigmoidoscopy 2021 [id number] ( season) 2024 Alcohol and Drug Screen 06/21/2024 Depression Annual Screen 06/21/2024 Imm-Influenza (Season Ended) 2025
--- NOTE | 2024-12-08 08:41 | CA_ITS ---
Acquisition Time: 2024-12-08 10:48:05 Total Exercise Time: 00:10:15 Test Indications: Dyspnea Medications: LISINOPRIL Protocol: NATA Max HR: 166 BPM 96% of Pred: 172 BPM Max BP: 164/80 mmHG Max Work Load: 12.1 METS Exercise stress test with exercise 10 mins 15 secs of Nata Protocol, achieving 95% MPHR, with reports of 5/10 mid chest discomfort describing as a cool sensation and mild SOB, without any arrythmias, with normotensive response to exercise. Without any EKG changes meeting criteria for ischemia. In recovery, breathing improved and chest discomfort resolved. Recommend stress echo for evaluation of chest discomfort. Test reviewed with Dr. Musa. Referred By: Dulce Mcdonough Electronically Signed By: Kyler Ye
--- NOTE | 2024-12-08 08:41 | CA_ITS ---
Transthoracic Echocardiogram Patient (Last, First, Middle): Gomez Anderson, Gender: Male Date of : 1975 Age: 49 Procedure Date: 12/08/2024 Procedure Type: Transthoracic Echocardiogram Location: OP Height: 180.34 cm Weight: 87.01 kg BSA: 2.07 m2 Heart Rate: 60 bpm BP: 132 / 80 mmHg Cemetery Manager: ELMA Referring MD: Dulce Mcdonough PA-C Symptoms: R06.09 - Other forms of dyspnea Study Quality: Adequate ECG Rhythm: Sinus Conclusions: - Normal left ventricular size, thickness, systolic function, and wall motion. The visually estimated ejection fraction is between 55-60%. - E/E prime ratio is between 8 and 15 consistent with indeterminate filling pressures. - Normal right ventricular cavity size and systolic function. - Significantly elevated right atrial pressure. Findings Left Ventricle Normal left ventricular size, thickness, systolic function, and wall motion. The visually estimated ejection fraction is between 55-60%. Abnormal diastolic function is noted. Spectral Doppler is indicative of a pseudonormal filling pattern. E/E prime ratio is between 8 and 15 consistent with indeterminate filling pressures. Right Ventricle Normal right ventricular cavity size and systolic function. Atria The left atrium is normal in size. The right atrium is likely dilated. Aortic Valve Normal aortic valve structure and function. There is no aortic valve stenosis. There is no aortic valve regurgitation. Mitral Valve The mitral valve appears normal. There is no mitral valve regurgitation. There is no mitral valve stenosis. Pulmonic Valve The pulmonic valve is likely normal. Tricuspid Valve Normal tricuspid valve structure. There is trace tricuspid valve regurgitation. Tricuspid regurgitation envelope is inadequate for calculation of right ventricular systolic pressure. Significantly elevated right atrial pressure. Great Vessels All visible segments of the aorta are normal in size. The visualized portions of the pulmonary artery and branches are normal. Venous The inferior vena cava is dilated and collapses less than 50% with inspiration. Pericardium/Pleural There is no evidence of pericardial effusion. Prior Study Comparison No prior study available for comparison. Measurements 2D Linear Measurements IVSd: 1.01 0.6-0.9/0.6-1.0 cm LVIDd: 4.63 3.9-5.3/4.2-5.9 cm LVIDd Index: 2.24 2.4-3.2/2.2-3.1 cm/m2 LVIDs: 3.10 2.0-3.6 cm LVPWd: 0.79 0.7-1.1 cm LA Diam: 3.60 2.7-3.8/3.0-4.0 cm LAIDs Index: 1.74 1.5-2.3 cm/m2 LV Mass: 173.52 67-162/88-224 g LV Mass Index: 83.82 43-95/49-115 g/m2 LVOT Diam: 2.10 3.0+(-)1.3 cm 2D Systolic Function EF 4C: 52.50 >55% EF 2C: 62.40 >55% EF BiP: 56.30 >55% Mitral Valve MV Pk E: 1.02 MV PK A: 0.56 MV Decel Time: 210.00 E/A: 1.80 E'Lateral: 12.50 E'Medial: 6.42 E/E' Med: 15.90 E/E' Lat: 8.20 PHT: 61.00 MVA PHT: 3.61 Decel Larue: 4.87 Aortic Valve AoV Pk Suleman: 1.24 AoV Pk Grad: 6.00 SOHAIL: 3.08 LVOT LVOT Pk Suleman: 1.06 LVOT Mn Suleman: 0.69 LVOT VTI: 0.20 LVOT Pk Grad: 4.00 LVOT Mn Grad: 2.00 LVOT Diam: 2.10 LVOT Area: 3.46 Diastolic Function MV Pk E: 1.02 MV Pk A: 0.56 E/A: 1.80 E'Medial: 6.42 E/E' Med: 15.90 E' Laterial: 12.50 E/E' Lat: 8.20 Right Ventricle TAPSE (mm): 19.80 TVS' Suleman: 11.40 Tricuspid Valve RA Press: 3.00 Great Vessels Aorta Sinus of Valsalva: 3.30 2.0-3.5 cm Ao Asc: 3.20 2.1-3.4 cm Pulmonary Veins Pulm Vein S/D 0.80 Pulmonary Valve PV Pk Suleman: 1.20 Peak PV Grad: 6.00 Updated in Other Vendor System with Status of Final Avery Musa MD electronically signed on 12/09/2024 11:07:56 PM with status of Final
== END ==
LOC: HO.CARD 08:36
PROVIDERS: PCP Physician Assistant; Visit Provider Physician Assistant
DX: R07.9 Chest pain, unspecified (principal); R06.09 Other forms of dyspnea
CPT/HCPCS: 93017; 93306

== ENCOUNTER → 2024-12-08 08:41 | Outpatient (BNV) | payer OTHER, SELFPAY | PROVIDERS: PCP Physician Assistant | DX: R06.00 Dyspnea, unspecified (principal); R07.9 Chest pain, unspecified | CPT/HCPCS: 93016; 93018; 93320; 93325; 93350 ==

== ENCOUNTER 2025-01-17 13:48 | Outpatient (AMB) | payer OTHER, SELFPAY ==
--- NOTE | 2025-01-17 13:51 | MHC.PC.OV ---
Vital Signs 01/17/25 13:58 Height 5 ft 10 in Weight 186 lb 2 oz BMI 26.7 BP 116/80 Blood Pressure Location Lt brachial Position Sitting Respiration 12 Pulse 70 Pulse Source Pulse Oximeter Temp 98.4 F Temp Source Oral Pulse Oximetry (%) 97 Oxygen Delivery Method Room Air Intake Visit Reasons: bp and labs 30 min appointment Intake Note: Blood pressure and labs follow up. Has been having a stuffy nose for the past week. Trouble breathing when laying down from nose being so stuffy. Had similar symptoms in in January from the [facility] Community Relations Specialist Required: Yes Community Relations Specialist Language: Omani Community Relations Specialist Name: [id number] Allergies atorvastatin Adverse Reaction (Unknown, Verified 01/17/25 13:53) rash on tongue Medication List - Last Reconciled 01/17/25 by Dulce Mcdonough PA-C lisinopril 20 mg PO DAILY rosuvastatin (Crestor) 5 mg PO DAILY Tobacco use date assessed: 01/17/25 Dental Screening Dental Screen Date: 01/17/25 Did you have a dental visit in the last 12 months?: Yes Did you have a dental problem in the last 6 months where you did not have access to dental care?: No Was dental information given to patient?: Patient has dentist HPI bp and labs 30 min appointment HPI Details Patient is a 49-year-old male who presents today for a follow up. He has htn, dyslipidemia and kidney cysts. [place]i phone park interpreter, [id number] HEENT: for the last week he has had some nasal congestion. No sinus pain, fever or chills. CV: He was started on lisinopril 20 mg. His bp today is 116/80. He was put on crestor after not tolerating lipitor. He was tolerating crestor but stopped it after one month and changed diet. He wants to do this without medication. He did have a stress test and echo after our last visit which were abnormal. I did refer him to cardiology and ordered a stress echo. He states he did not do the follow ups yet because he was feeling better in terms of guillen. He states he will call and book. Reminded him of chest xray order. Uro: Following with Urology for renal cysts. GI: He has never had a colonoscopy. This was ordered. Has not heard. He is following with GI for elevated lfts. He was started on atorvastatin but states that he did not tolerate this. He felt like it irritated his tongue in caused his gums to bleed easily. He states when he stopped the medication it improved/resolved. He did not have any swelling of the face, tongue, lips or throat. He did not have any itching or rashes. PFSH Family History Mother Diabetes Social History (Updated 09/13/24 @ 15:04 by Diann Jauregui CMA) Housing: House Alcohol intake: current Patient Tobacco Use Status: Former Tobacco user Cigarette Packs Per Day: 1 Years Smoked: 1.5 e-Cigarette/Vaping Use: Never Used Second Hand Smoke Exposure: No service: Yes Current occupational status: employed Current occupation: [employer] Current occupational exposures/hazards: No Cognitive needs: No Hearing needs: Yes (difficutly hearing) Vision needs: No Questionnaire Thrive Questionnaire Date Thrive assessed: 09/13/24 I am a: Patient What is your living situation today?: I have a steady place to live Within the past 12 months, did the food you bought not last and you didn't have the money to get more?: Never true Within the past 12 months, did you worry whether your food would run out before you got money to buy more?: Never true Do you have trouble paying for medicines?: No Do you have trouble getting transportation to medical appointments?: No Do you have trouble paying your heating and electricity bill?: No Do you have trouble taking care of your child, family member or friend?: No Do you have trouble with day-to-day activities such as bathing, preparing meals, shopping, managing finances, etc.?: No Are you currently unemployed and looking for a job?: No Are you interested in more education?: Yes Please select the resources that you would like help with: Education Currently or been in a relationship where the following occur: No concerns reported THRIVE Score: 0 AUDIT C Alcohol Use Questionnaire (AUDIT-C) 1. How often do you have a drink containing alcohol?: 2-3 times a week 2. How many drinks containing alcohol do you have on a typical day when you are drinking?: 1 or 2 3. How often do you have six or more drinks on one occasion?: Never Total Score: 3 ARTI-7 AMB Questionnaire ARTI-7 Date ARTI - 7 assessed: 09/13/24 Source: Developed by Drs. Len Aguilera, Gina Perera, Gatito Guerrero and colleagues, with an educational fatou from [employer]. Physical exam (Primary Care) Tobacco/Smoking Status: Tobacco use Status Tobacco use date assessed 01/17/25 01/17/25 13:54 Patient Tobacco Use Status Former Tobacco user 01/17/25 13:53 e-Cigarette/Vaping Use Never Used 01/17/25 13:53 Thrive Assessment: Date of Thrive Assessment Date Thrive assessed 09/13/24 01/17/25 13:53 Currently or been in a relationship where the following occur: No concerns reported Const Orientation/consciousness: patient oriented x3 HENMT Ears: hearing grossly normal bilaterally Neck Thyroid: Thyroid normal Lymphatic: no lymphadenopathy noted Resp Auscultation: clear to auscultation bilaterally Cardio Rate: regular rate Rhythm: regular rhythm Heart sounds: S1 normal heart sound present and S2 normal heart sound present GI Inspection: Yes normal to inspection Palpation (GI): Soft to palpation and Other GI palpation findings present (nontender, no cva tenderness) Auscultation: normoactive bowel sounds Rectal Exam - Male: Yes deferred Skin General skin exam: no rashes or lesions noted Neuro General: patient oriented x3, gait normal and no focal motor deficits Results Reviewed Results Reviewed: Laboratory Tests 05/09/24 06/01/24 10:10 10:11 WBC 6.0 RBC 5.17 Hgb 14.8 Hct 44.5 Plt Count 259 Sodium 139 Potassium 4.0 Chloride 105 Carbon Dioxide 25 Anion Gap 13 BUN 18 H Creatinine 0.82 Estimated GFR > 60 Fasting Glucose 89 Calcium 9.7 Iron 84 TIBC 322 AST 25 ALT 48 H Alkaline Phosphatase 64 Total Protein 7.8 Albumin 4.5 Triglycerides 206 H Cholesterol 228 H LDL Cholesterol, Calc 145 H HDL Cholesterol 42 PSA Screen 0.31 TSH 1.28 US/US abdomen complete IMPRESSION: 1. Increased echogenicity of the liver parenchyma, this can be seen in the setting of hepatic steatosis or liver parenchymal disease. 2. Cholelithiasis without ultrasound evidence of acute cholecystitis. 3. Left renal cyst 1.5 cm. Echo Conclusions: - Normal left ventricular size, thickness, systolic function, and wall motion. The visually estimated ejection fraction is between 55-60%. - E/E prime ratio is between 8 and 15 consistent with indeterminate filling pressures. - Normal right ventricular cavity size and systolic function. - Significantly elevated right atrial pressure. Stress test: Exercise stress test with exercise 10 mins 15 secs of Dinh Protocol, achieving 95% MPHR, with reports of 5/10 mid chest discomfort describing as a cool sensation and mild SOB, without any arrythmias, with normotensive response to exercise. Without any EKG changes meeting criteria for ischemia. In recovery, breathing improved and chest discomfort resolved. Recommend stress echo for evaluation of chest discomfort. Test reviewed with Dr. Musa. Coding Level of Care Code Est Pt Level 4 (06105) Complex EM visit Add On G2211 Diagnoses Primary hypertension I10 Hypertension type: primary hypertension Dyslipidemia E78.5 Elevated LFTs R79.89 Renal cyst N28.1 Abnormal echocardiogram R93.1 GUILLEN (dyspnea on exertion) R06.09 Allergic rhinitis J30.9 Assessment & Plan Assessment & Plan (1) Hypertension: Code(s): I10 - Essential (primary) hypertension Category: Medical Qualifiers: Hypertension type: primary hypertension Qualified Code(s): I10 - Essential (primary) hypertension Plan: wnl continue current plan (2) Dyslipidemia: Code(s): E78.5 - Hyperlipidemia, unspecified Category: Medical Plan: will check lipids off of statin to see if improved with lifestyle modifications. (3) Elevated LFTs: Code(s): R79.89 - Other specified abnormal findings of blood chemistry Category: Medical Plan: lfts ordered following with GI (4) Renal cyst: Code(s): N28.1 - Cyst of kidney, acquired Category: Medical Plan: stable does not want to follow up again now with urology- saw someone in [facility] (5) Abnormal echocardiogram: Code(s): R93.1 - Abnormal findings on diagnostic imaging of heart and coronary circulation Category: Medical Plan: advised to see cardiology as directed phone number provided (6) GUILLEN (dyspnea on exertion): Code(s): R06.09 - Other forms of dyspnea Category: Medical Plan: improved (7) Allergic rhinitis: Code(s): J30.9 - Allergic rhinitis, unspecified Category: Medical Plan: will try flonase Medications: Refilled rosuvastatin (Crestor) 5 mg PO DAILY 90 tabs 1RF Patient Instructions: [phone] cardiology number
[2025-01-17 13:58] VITALS: BP 116/80; PULSE 70; RESP 12; TEMP 36.9; O2SAT 97; BMI 26.7
--- OUTSIDE RECORDS SUMMARY | 2025-01-17 14:27 | XMS_ITS | Clinical Summary ---
Author Organization [facility] Address [address] [place] [address] Care Team Providers Care Financial Management Analyst Name Role Phone Unavailable Primary Care Provider [...] 2021 Fecal DNA 2021 Flexible Sigmoidoscopy 2021 [id number]-[id number]-08 ( season) 2024 Alcohol and Drug Screen 06/21/2024 Depression Annual Screen 06/21/2024 Imm-Influenza (#1) 2025
== END 2025-01-17 14:30 | disposition home or self-care (01) ==
LOC: HO.HMCFM 13:48
PROVIDERS: PCP Physician Assistant; Visit Provider Physician Assistant
DX: I10 Essential (primary) hypertension (principal); E78.5 Hyperlipidemia, unspecified; R79.89 Other specified abnormal findings of blood chemistry; N28.1 Cyst of kidney, acquired; R93.1 Abnormal findings on diagnostic imaging of heart and coronary circulation; R06.09 Other forms of dyspnea; J30.9 Allergic rhinitis, unspecified

== ENCOUNTER 2025-01-26 08:17 | Outpatient (REF) | payer OTHER, SELFPAY ==
--- OUTSIDE RECORDS SUMMARY | 2025-01-26 08:28 | XMS_ITS | Clinical Summary ---
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
[2025-01-26 11:33] LABS: MANUAL DIFF FLAG NO
[2025-01-26 11:42] LABS: Hematocrit 42.6 % (42.0-52.0); Hemoglobin 14.5 g/dl (14.0-18.0); Imm Gran Abs Auto 0.01 X10*3/uL (0.00-0.03); Imm Gran Pct Auto 0.2 % (0.0-0.4); Lymphocytes Absolute Auto 2.3 X10*3/uL (1.2-4.9); Mean Corpuscular HGB Conc 34.0 g/dl (31.0-36.0); Mean Corpuscular Hemoglobin 28.4 pg (27.0-33.0); Mean Corpuscular Volume 83.5 fL (80.0-98.0); NRBC Abs Auto 0.000 X10*3/uL (0.0-0.012); NRBC Pct Auto 0.0 /100WBC (0.0-0.2); Platelet Count 269 X10*3/uL (160-400); Red Blood Count 5.10 X10*6/uL (4.60-5.80); White Blood Count 5.8 X10*3/uL (4.8-10.8)
[2025-01-26 12:16] LABS: Alanine Aminotransferase 40 U/L (0-40); Albumin Level 4.6 g/dL (3.5-5.0); Alkaline Phosphatase 96 U/L (39-117); Anion Gap 9 (12-20); Aspartate Amino Transferase 22 U/L (5-37); Blood Urea Nitrogen 21 mg/dL (9-16); Calcium 8.8 mg/dL (8.4-10.2); Carbon Dioxide 28 mmol/L (22-29); Chloride 106 mmol/L (96-108); Cholesterol 191 mg/dL (<200); Estimated Glomerular Filt Rate > 60; HDL Cholesterol 41 mg/dL (>40); Potassium 4.3 mmol/L (3.3-5.1); Sodium 139 mmol/L (135-145); Total Protein 7.3 g/dL (6.5-8.0); Triglycerides 110 mg/dL (<150)
== END 2025-01-26 08:18 | disposition home or self-care (01) ==
LOC: HO.WFDLDS 08:17
PROVIDERS: Referring Provider Internal Medicine; Visit Provider Physician Assistant
DX: I10 Essential (primary) hypertension (principal); K76.0 Fatty (change of) liver, not elsewhere classified; R79.89 Other specified abnormal findings of blood chemistry; E78.5 Hyperlipidemia, unspecified
CPT/HCPCS: 36415; 80053; 80061; 80076; 82248; 85025

== ENCOUNTER → 2025-02-20 10:49 | Outpatient (REF) | payer OTHER, SELFPAY ==
--- NOTE | 2025-02-20 10:53 | CA_ITS ---
Acquisition Time: 2025-02-20 10:58:46 Total Exercise Time: 00:08:30 Test Indications: abn ekg Medications: see h&p Protocol: NATA Max HR: 187 BPM 108% of Pred: 172 BPM Max BP: 184/90 mmHG Max Work Load: 10.1 METS Exercise stress test with exercise 8 mins 30 secs of Nata Protocol, achieving 102% MPHR, with reports of 3/10 mid chest burning pain towards the end of exercise and SOB, with one ventricular couplet, with normotensive response to exercise. Without any EKG changes meeting critreia for ischemia. In recovery, chets discomfort resolved quickly anf breathing returned to baseline. Echo images obtained by tech at rest and post peak exercise. Definity contrast utilized. Test reviewed with Dr. Musa. Referred By: Dulce Mcdonough Electronically Signed By: Kyler Ye
--- OUTSIDE RECORDS SUMMARY | 2025-02-20 12:18 | XMS_ITS | Clinical Summary ---
Author Organization [facility] Address [address] [place] [address] Care Team Providers Care Alcohol Law Enforcement Agent Name Role Phone Unavailable Primary Care Provider [...] 2021 Fecal DNA 2021 Flexible Sigmoidoscopy 2021 Vak-IXNAI-31 ( season) 2024 Alcohol and Drug Screen 06/21/2024 Depression Annual Screen 06/21/2024 Imm-Influenza (#1) 2025
== END ==
LOC: HO.CARD 10:49
PROVIDERS: PCP Physician Assistant; Visit Provider Physician Assistant
DX: R94.39 Abnormal result of other cardiovascular function study (principal); R94.31 Abnormal electrocardiogram [ECG] [EKG]; I10 Essential (primary) hypertension; R93.1 Abnormal findings on diagnostic imaging of heart and coronary circulation; R07.9 Chest pain, unspecified
CPT/HCPCS: 93350; Q9957

== ENCOUNTER → 2025-02-20 10:53 | Outpatient (BNV) | payer OTHER, SELFPAY | PROVIDERS: PCP Physician Assistant | DX: R06.02 Shortness of breath (principal); R07.89 Other chest pain | CPT/HCPCS: 93016; 93018; 93350; 93352 ==

== ENCOUNTER 2025-03-12 15:55 | Outpatient (AMB) | payer OTHER, SELFPAY ==
[2025-03-12 16:01] VITALS: BP 120/72; PULSE 67; BMI 26.9
--- NOTE | 2025-03-12 16:01 | MHC.OFFVIS ---
Vital Signs 03/12/25 16:01 Height 5 ft 10 in Weight 187 lb 6.287 oz BMI 26.9 BP 120/72 Blood Pressure Location Lt brachial Position Sitting Pulse 67 Intake Visit Reasons: 3 month f/u elevated LFTs Intake Note: Gomez presents in the office as a 3 month follow up for elevated liver function. CC: States that he is not having any GI concerns at this time. Metal Melter Required: Yes Metal Melter Name: Chandler Moscoso Allergies atorvastatin Adverse Reaction (Unknown, Verified 01/17/25 13:53) rash on tongue HPI Comments Details: 48 y.o [place] Viky who is here for elevated LFTs. Seen with online diplomatic interpreter/translator. Pt reports no abd pain, N,V, D. No abd distention, pruritus, joint pains reported. Drinks etOH rarely 2-3 times a year. No fam hx of liver disease. Had routine labs done through PCP which showed mildly elevated ALT <x2UNL. US Abd done that shows steatosis. Also shows GB stone. Hep sero negative. Iron studies normal. Laboratory Tests 05/09/24 06/01/24 06/01/24 10:10 10:11 10:41 Hgb 14.8 Hct 44.5 Plt Count 259 BUN 18 H Creatinine 0.82 Fasting Glucose 89 Ferritin 124 GGT 31 AST 25 ALT 48 H Triglycerides 206 H Cholesterol 228 H LDL Cholesterol, Calc 145 H HDL Cholesterol 42 Hepatitis A IgG Ab Nonreactive Hep Bs Antigen Negative Hep Bs Antibody NONREACTIVE Hepatitis C Ab (EIA) Nonreactive US Abd 1. Increased echogenicity of the liver parenchyma, this can be seen in the setting of hepatic steatosis or liver parenchymal disease. 2. Cholelithiasis without ultrasound evidence of acute cholecystitis. 3. Left renal cyst 1.5 cm 03/12/25: Here for follow up. Seen with the help of online [employer] diplomatic interpreter/translator. Labs consistent with MAFLD. PCP reduced rosuvastatin to 5 mg once daily. Fib 0.62 Pt also overdue on CRC screening. Has previously declined colonoscopy. Revisited today and pt continues to be hesitant. Did review procedure done with anesthesia on board. PFSH Family History Mother Diabetes Social History (Updated 09/13/24 @ 15:04 by Diann Jauregui CMA) Housing: House Alcohol intake: current Patient Tobacco Use Status: Former Tobacco user Cigarette Packs Per Day: 1 Years Smoked: 1.5 e-Cigarette/Vaping Use: Never Used Second Hand Smoke Exposure: No service: Yes Current occupational status: employed Current occupation: [employer] Current occupational exposures/hazards: No Cognitive needs: No Hearing needs: Yes (difficutly hearing) Vision needs: No Review of Systems Const All systems reviewed & are unremarkable except as noted in HPI and below Physical Exam Exam Exam: No apparent distress Nonicteric Abdomen soft, nondistended Alert and oriented x3, normal gait Vital Signs: Last Vital Signs Pulse 67 03/12/25 16:01 BP 120/72 03/12/25 16:01 BMI result Body Mass Index 26.9 Assessment & Plan Assessment & Plan (1) Elevated LFTs: Code(s): R79.89 - Other specified abnormal findings of blood chemistry Category: Medical (2) Fatty liver: Code(s): K76.0 - Fatty (change of) liver, not elsewhere classified Category: Medical (3) Dyslipidemia: Code(s): E78.5 - Hyperlipidemia, unspecified Category: Medical (4) Colon cancer screening: Code(s): Z12.11 - Encounter for screening for malignant neoplasm of colon Category: Medical Plan Labs consistent with MAFLD. No evidence of advanced fibrosis based on NIT. Fib 4 0.65 Plan: - Based on fib 4 score of 0.65 and absence of other risk factors (such as T2DM, age >50, BMI >50,) patient falls under low risk for progression, and therefore this time is being discharged back to PCP's care for obesity management and prevention of cardiovascular disease. For CRC screening, pt continues to decline colonoscopy but agreeable to stool based testing. He is average risk. Cologuard has been requested. Pt aware that if pos, he will be booked for a diagnostic colo. Follow up contingent on results of cologuard Coding Level of Care Code Est Pt Level 4 (92617) Diagnoses Elevated LFTs R79.89 Fatty liver K76.0 Dyslipidemia E78.5 Colon cancer screening Z12.11
== END 2025-03-12 18:23 | disposition home or self-care (01) ==
LOC: HO.HGI 15:56
PROVIDERS: PCP Physician Assistant; Visit Provider Internal Medicine
DX: R74.01 Elevation of levels of liver transaminase levels (principal); K76.0 Fatty (change of) liver, not elsewhere classified; E78.5 Hyperlipidemia, unspecified
CPT/HCPCS: 99214